=== PATIENT | female | born 1995 | race Caucasian/White ===

== ENCOUNTER 2022-10-14 09:59 | Outpatient (CLI) | payer BC, SELFPAY | END 2022-10-14 10:00 | disposition home or self-care (01) | PROVIDERS: PCP Nurse Practitioner Family; Visit Provider Nurse Practitioner Family | DX: E66.9 Obesity, unspecified (principal) | CPT/HCPCS: 80048; 84443 ==

== ENCOUNTER 2023-04-21 09:47 | Outpatient (CLI) | payer BC, SELFPAY | END 2023-04-21 09:48 | disposition home or self-care (01) | LOC: LONREF 09:49 | PROVIDERS: PCP Nurse Practitioner Family; Visit Provider Nurse Practitioner Family | DX: R73.03 Prediabetes (principal); E66.9 Obesity, unspecified; E78.5 Hyperlipidemia, unspecified | CPT/HCPCS: 80061 ==

== ENCOUNTER 2023-08-18 21:01 | Outpatient (CLI) | payer BC, SELFPAY ==
--- NOTE | 2023-08-23 14:44 | W.PM.SLEEP ---
Sleep Study Details Details Interpreting Provider: Sallie Date of Sleep Study: 08/18/23 Sleep Study Details: STUDY TYPE:? Hospital based with CPAP titration ? BMI:? 43.7 ORDERING PROVIDER:? Sallie INDICATION:? Concerns about sleep apnea ? SLEEP SUMMARY:? Total sleep time 281 minutes, arousal index 9.2 RESPIRATORY SUMMARY:? Mean oxygen awake 98, asleep 93, minimum 62 Oxygen between 80 and 88% 21.2 minutes, between 70 in 79% 9.1 minutes, between 60 and 69% 0.9 minutes. AHI 120 REM AHI 115.9, RDI 123.7. Note that the entire diagnostic portion of study was done in the nonsupine position CPAP titration was performed the patient was titrated to a pressure of 10 which included 18.5 minutes of REM stage sleep in the supine position and decreased AHI to 1.1 under CMS rules and 7.4 under rule 1A rules. Our DI was 7.1. This would be viewed is a successful titration study. PERIODIC LIMB MOVEMENTS OF SLEEP:? Pre treatment index 0, post treatment index 18, with arousal 0 CARDIAC:? Awake 91, asleep 88. PVCs were noted IMPRESSION:? Very severe obstructive sleep apnea with an AHI of 120. Entire study was done nonsupine. CPAP titration was relatively effective at a pressure of 10 decreasing AHI to 1.1. RECOMMENDATION: Recommend auto set CPAP at pressure of 9-18. Follow-up after 1 month. And p.r.n.
== END 2023-08-18 21:02 | disposition home or self-care (01) ==
LOC: SLEEP 21:05
PROVIDERS: PCP Nurse Practitioner Family; Visit Provider Otolaryngology
DX: G47.33 Obstructive sleep apnea (adult) (pediatric) (principal)
CPT/HCPCS: 95811